=== PATIENT | female | born 2000 | race Caucasian/White ===

== ENCOUNTER 2023-08-08 16:00 | Emergency (ER) | payer SELFPAY ==
[2023-08-08 16:02] VITALS: BP 153/102; BMI 37.1
[2023-08-08 17:15] VITALS: BP 113/83
--- NOTE | 2023-08-08 17:20 | ED.SKININJ ---
HPI-Injury
General
Chief Complaint: Bite
Source: patient
Exam Limitations: none
Time Seen by Provider: 08/08/23 16:18
Nursing documentation reviewed up to this point in time: agreed with
Travel History
Have you had any contact with someone who has COVID-19?: No
Do you have any symptoms of coronavirus? Fever > 100 degrees, chills, cough, shortness of breath, sore throat, loss of taste or smell, muscle aches, or headache?: No
History of Present Illness-Injury
Initial Injury comments:
Patient is a 23-year-old female who presents to the ER for palpitations. Patient started with intermittent palpitations since last night. She reports they are intermittent and resolve on their own. She does feel little short of breath with
palpitations. She denies any chest pain. She denies anxiety. She currently is asymptomatic
In adidtion , she reports on the Thursday she was bitten by family dog went to [facility] and was started on antibiotics, Augmentin. She has been taking Augmentin for Thursday and did notice a rash to her chest last night. It is not itchy.
She denies any lip or tongue swelling. Regarding dog bite to her left third finger she does not complain of pain she denies any swelling drainage or redness.
Review of Systems
Review of Systems
Allergies reviewed?: Yes
All Other Systems: ROS reviewed and negative except as documented in HPI and ROS
Constitutional: Reports no symptoms; Denies fever, fatigue or chills
Cardiac: Reports palpitations and other (feels SOB with palpitations only ); Denies chest pain, diaphoresis or syncope
ABD/GI: Reports no symptoms
Musculoskeletal: Reports other (healing dog bite to left middle finger )
Skin: Reports no symptoms
Hematologic/Lymphatic: Reports no symptoms
Psychiatric: Reports no symptoms
Phy Exam
General Physical Exam
General Presentation: no apparent distress
General age: appears stated age
General Skin: warm and dry
General Habitus: normal
General Mental: alert
General Hydration: appears well hydrated
Cardiovascular Exam
Cardiovascular Exam: regular rate/rhythm, no murmur and normal peripheral pulses
Pulmonary Exam
Pulmonary Exam: lungs clear and no respiratory distress
Neurological Exam
Neurological Exam: alert and oriented x3
Musculoskeletal Exam
Musculoskeletal Exam: full ROM and other (Left upper extremity third digit volar aspect with healing wound no swelling ,drainage , or erythema)
Skin Exam
Skin Exam: normal color, warm/dry and other (scattered mild erythema to chest )
Psychiatric Exam
Psychiatric Exam: normal mood/affect
Course
Orders/Labs/Results
Orders:
Orders
08/08/23 16:04
EKG [Electrocardiogram (*1)] Urgent
Reason for Study: Palpitations
EKG- Treatment ONCE
08/08/23 17:30
Complete Blood Count/With Diff Urgent
Comprehensive Metabolic Panel Urgent
DDimer [D-Dimer] Urgent
TSH Reflex To Free T4 Urgent
Abnormal Lab Results
08/08/23
17:30
Hct 36.7 L %
(37.0-47.0)
Creatinine 0.4 L mg/dL
(0.6-1.0)
Glucose 106 H mg/dl
(70-99)
08/08/23 17:30
08/08/23 17:30
Vital Signs
Initial and Last Documented VS:
Initial Vital Signs
Temp Pulse Resp BP Pulse Ox
99.1 F 122 20 153/102 99
08/08/23 16:02 08/08/23 16:02 08/08/23 16:02 08/08/23 16:02 08/08/23 16:02
Last Documented Vital Signs
Temp Pulse Resp BP Pulse Ox
99.1 F 86 22 113/83 100
08/08/23 16:02 08/08/23 18:30 08/08/23 18:30 08/08/23 17:15 08/08/23 18:30
Manufacturing Area Manager consulted with Physician
Manufacturing Area Manager consulted with physician?: Yes
Name of Physician Consulted: [email or web address]
MDM/Problems Addressed
MDM/Problems Addressed:
Patient is a 23 female who presented to the ER for evaluation. Patient with complaint of intermittent palpitations since last night, felt mildly short of breath with palpitations denies chest pain. Denies any recent illness fever chills. She did
recently suffer a dog bite by family dog that was vaccinated. At that time on August 02 she was seen at [facility] placed on Augmentin. She did since then developed a rash to her chest that does not itch. She has been on antibiotics for over 4
days and there is no evidence infection there is a healing wound to her left middle finger. Will have her stop Augmentin for possible allergy. Regarding palpitations patient presents awake alert no acute distress she was mildly tachycardic on
arrival however has been in the 90s. She is well-appearing with normal labs including normal TSH normal chemistries normal D-dimer.
Will d/c w/ pcp follow up and cardiology if needed for possible holter monitor.
*Critical Care Note
Total Time (30-74mins, 75-104mins- exclusive of procedures): Not Applicable
ED Attending Note
-
Portions of this chart may have been created with voice recognition software.� Occasional wrong word or��sound alike� substitutions may have occurred due to the inherent limitations of voice recognition software.
Discharge Plan
Departure
Patient Disposition: Home (Routine Discharge)
Date of Disposition: 08/08/23
Time of Disposition: 18:40
Patient with high blood pressure during this ER visit?: Yes
Condition: Fair
Covid-19: Not Applicable
Discharge Problem:
Heart palpitations, Rash
Referrals:
Raymundo Hodge MD [Active] -
NONE,* [Family Provider] -
Activity Restrictions/Additional Instructions:
As discussed regarding palpitations follow-up closely with your family doctor and if needed cardiology for further evaluation. Regarding Augmentin this may be an allergy stop. There is no evidence of infection to your finger wound appears healing.
Follow-up closely with your family doctor in the next few days for wound check of your left finger wound. Stay well-hydrated return if any worse of symptoms.
Interventions
Interventions:
*Risk Screen - Suicide Last Done: 08/08/23 16:02
*Neglect/Abuse Screening Last Done: 08/08/23 16:02
*ED COVID-19 Vaccine History Last Done: 08/08/23 16:02
ED-Skin Assessment Last Done: 08/08/23 17:18
[2023-08-08 17:40] LABS: % Basophils 0.4 % (0-2); % Immature Granulocytes 0.3 % (0-0.5); % Lymphocytes 28.9 % (20.5-51.1); % Monocytes 6.3 % (1.7-9.3); % Neutrophils 62.1 % (42.2-75.2); Absolute Eosinophils 0.1 10^3/uL (0-0.7); Absolute Monocytes 0.4 10^3/uL (0.1-0.6); Absolute Neutrophils 4.2 10^3/uL (1.4-6.5); Hematocrit 36.7 % (37.0-47.0); Hemoglobin 12.8 g/dL (12.0-16.0); Mean Corp Hgb Conc. 34.9 g/dL (33.0-37.0); Mean Corpuscular Hgb 29.2 pg (27.0-31.0); Mean Corpuscular Volume 83.8 fL (81.0-99.0); Mean Platelet Volume 9.1 fL (7.4-10.4); Nucleated Red Blood Cells % 0 %; Platelet Count 308 10^3/uL (130-400); Red Blood Cell Count 4.38 10^6/uL (4.20-5.40); White Blood Cell Count 6.8 10^3/uL (4.8-10.8)
[2023-08-08 17:54] LABS: ALT (SGPT) 15 U/L (0-35); AST (SGOT) 21 U/L (14-36); Alkaline Phosphatase 79 U/L (38-126); Blood Urea Nitrogen 15 mg/dl (7-17); Calcium 9.1 mg/dl (8.4-10.2); Carbon Dioxide 22 mmol/L (22-30); Chloride 105 mmol/L (98-107); Estimated Creatinine Clearance > 125 ml/min; Glucose 106 mg/dl (70-99); Potassium 3.8 mmol/L (3.5-5.1); Sodium 138 mmol/L (135-145); Total Bilirubin 0.3 mg/dl (0.2-1.3); eGFR > 60.00
[2023-08-08 18:23] LABS: D-Dimer < 0.27 ug/mlFEU (0.00-0.50)
[2023-08-08 18:24] LABS: TSH Reflex To Free T4 0.96 uIU/ml (0.47-4.68)
[2023-08-08 19:23] VITALS: BP 110/81
== END 2023-08-08 19:00 | disposition home or self-care (01) ==
LOC: EMR 16:00
PROVIDERS: Nurse Practitioner; EMERGENCY PHYSICIAN Emergency Medicine
DX: R00.2 Palpitations (principal); R21 Rash and other nonspecific skin eruption
CPT/HCPCS: 99283; 80053; 84443; 85025; 85379; 93005